=== PATIENT | male | born 1950 | race Caucasian/White ===

== ENCOUNTER 2021-11-07 14:23 | Inpatient (IN) ==
[2021-11-07 14:54] LABS: POC Blood Urea Nitrogen 14 mg/dL (6-20); POC CO2 27 mmol/L (22-30); POC Calcium, Ionized 1.21 mmEq/L (1.16-1.32); POC Chloride 102 mEq/L (96-108); POC Creatinine 0.6 mg/dL (0.6-1.2); POC Glucose, Random 117 mg/dL (70-105); POC Hematocrit 38 % (41-55); POC Potassium 2.7 mEql/L (3.3-5.1); POC Sodium 141 mEq/L (133-145)
[2021-11-07] MEDS ORDERED: oxyCODONE/APAP 5/325MG TABLET PO ONE (15:04)
[2021-11-07 15:20] LABS: Basophils # (Auto) 0.05 K/mcL (0.00-0.30); Basophils % (Auto) 0.5 % (0.0-2.0); Eosinophils # (Auto) 0.01 K/mcL (0.00-0.70); Eosinophils % (Auto) 0.1 % (0.0-7.0); Hematocrit 37.2 % (40.1-51.0); Hemoglobin 12.9 g/dL (13.7-17.5); Lymphocytes % (Auto) 17.5 % (15.5-49.0); Mean Cell Volume 90.7 fL (80.0-100.0); Mean Corpuscular HGB Conc 34.7 g/dL (31.0-36.0); Mean Platelet Volume 8.7 fL (7.4-10.4); Monocytes % (Auto) 11.3 % (1.0-12.0); Neutrophils % (Auto) 70.6 % (38.0-78.0); Platelet Count 357 K/mcL (140-440); Red Cell Distribution Width 15.5 % (11.5-14.5); WBC 9.7 K/mcL (4.5-11.0)
[2021-11-07] MEDS ORDERED: POTASSIUM CHLORIDE 20 MEQ TABLET PO ONE (15:46)
[2021-11-07] MEDS ORDERED: MAGNESIUM SULFATE 8.12 MEQ in DEXTROSE 5% IN WATER 50 ML IV ONE (15:46)
[2021-11-07 15:47] LABS: ALT/SGPT 28 U/L (<40); AST/SGOT 41 U/L (<40); Albumin 3.9 gm/dL (3.2-5.2); Albumin/Globulin Ratio 1.4 (1.0-2.3); Alkaline Phosphatase 76 U/L (39-117); Bilirubin,Total 0.5 mg/dL (0.1-1.0); Blood Urea Nitrogen 14 mg/dL (8-23); Calcium 9.2 mg/dL (8.6-10.4); Carbon Dioxide 27 mmol/L (22-30); Chloride 101 mmol/L (96-108); Globulin 2.7 gm/dL (2.2-3.7); Glomerular Filtration Rate 99; Glucose 120 mg/dL (70-105)
--- NOTE | 2021-11-07 15:57 | Emergency Department Note ---
Weakness HPI General Chief complaint: Weakness Stated complaint: unable to care for himself Time Seen by Provider: 11/07/21 14:27 Source: patient Mode of arrival: ambulatory Limitations: no limitations History of Present Illness HPI Narrative: Narrative: 71-year-old male presents for evaluation of generalized weakness, inability to care for himself at home. He has had 2 ER visits over the past 2 days subacute head trauma on Eliquis, had head CT which was negative, no other acute findings found other than borderline hypokalemia which was repleted yesterday. He denies any headache or dizziness. He denies chest pain or shortness of breath. He denies any constipation diarrhea or issues with diet. He denies fever or chill. He denies dysuria. He currently feels well other than generally weak Related Data Home Medications Medication Instructions Recorded Confirmed albuterol sulfate 90 mcg/actuation 1 - 2 puff PO QID 11/07/21 11/07/21 aerosol inhaler (Ventolin HFA) apixaban 5 mg tablet (Eliquis) 1 tab PO BID 11/07/21 11/07/21 atorvastatin 10 mg tablet 2 tab PO HS 11/07/21 11/07/21 ferrous sulfate 325 mg (65 mg 1 tab PO QDAY 11/07/21 11/07/21 iron) tablet (FeroSul) fluoxetine 20 mg capsule 1 cap PO QAM 11/07/21 11/07/21 levothyroxine 88 mcg tablet 1 tab PO QDAY 11/07/21 11/07/21 nifedipine 60 mg tablet,extended 1 tab PO QDAY 11/07/21 11/07/21 release oxycodone-acetaminophen 10 mg-325 1 tab PO QIDP PRN 11/07/21 11/07/21 mg tablet potassium chloride 10 mEq 1 cap PO QDAY 11/07/21 11/07/21 capsule,extended release Allergies Allergy/AdvReac Type Severity Reaction Status Date / Time No Known Drug Allergies Allergy Unverified 11/07/21 14:28 Review of Systems ROS ROS Narrative: Narrative: All systems ED: reviewed and negative except as stated. [facility] Narrative Patient History Narrative: Narrative: Medical/Surgical/Family History All Active Problems (Updated 11/07/21 @ 17:02 by Grayson Quiles DO) Acute hypokalemia (Acute) Weakness (Acute) Social History Smoking Status: Never smoker Exam Narrative Narrative: Narrative: General Limitations: no limitations General appearance: Present alert and in no apparent distress Head Head: Present atraumatic and normocephalic Eye Eye: Present normal appearance and PERRL ENT ENT: Present normal exam and normal oropharynx Neck Neck: Present normal inspection and full ROM Chest Chest: Present normal inspection and symmetric chest wall rise Respiratory Respiratory: Absent respiratory distress Cardiovascular Cardiovascular: Present regular rate and normal rhythm Adbominal Abdominal: Present soft; Absent tenderness Extremities Extremities: Present normal inspection and full ROM Back Back: Present normal inspection and full ROM Neurological Neurological: Present alert, oriented X3 and CN II-XII intact Psychiatric Psychiatric: Present normal affect and normal mood Skin Skin: Present warm (WNL), dry and normal color Course Vital Signs Vital signs: Vital Signs Temperature 99 F 11/07/21 14:24 Pulse Rate 65 11/07/21 14:24 Respiratory Rate 16 11/07/21 14:24 Blood Pressure 143/92 11/07/21 14:24 Pulse Oximetry (%) 94 11/07/21 14:24 Temperature 99 F 11/07/21 14:24 Pulse Rate 61 11/07/21 15:01 Respiratory Rate 16 11/07/21 14:24 Blood Pressure 153/89 11/07/21 15:01 Pulse Oximetry (%) 93 11/07/21 15:01 MDM MDM Narrative Medical decision making narrative: Narrative: Patient with generalized weakness. He is found to have worsening hypokalemia. Initial replete meant started in the emergency department. Does have abnormal EKG with prolonged QTC with this, these more appear to be T U waves. He will need cardiac monitoring, further potassium repletion and admission. By patient report he is also having multiple falls and will need PT evaluation and placement Medical Records Medical records reviewed: Yes I reviewed the patient's medical records. Lab Data Lab results reviewed: Yes I reviewed the patient's lab results. Result diagrams: 11/07/21 14:39 11/07/21 14:39 Labs: Lab Results 11/07/21 11/07/21 Range/Units 14:39 14:39 WBC 9.7 (4.5-11.0) K/mcL RBC 4.10 L (4.63-6.08) M/mcL Hgb 12.9 L (13.7-17.5) g/dL Hct 37.2 L (40.1-51.0) % POC Hct 38 L (41-55) % MCV 90.7 (80.0-100.0) fL MCH 31.5 (26.0-34.0) pg MCHC 34.7 (31.0-36.0) g/dL RDW 15.5 H (11.5-14.5) % Plt Count 357 (140-440) K/mcL MPV 8.7 (7.4-10.4) fL Neut % (Auto) 70.6 (38.0-78.0) % Lymph % (Auto) 17.5 (15.5-49.0) % Falls % (Auto) 11.3 (1.0-12.0) % Eos % (Auto) 0.1 (0.0-7.0) % Baso % (Auto) 0.5 (0.0-2.0) % Lymph # (Auto) 1.70 (1.50-4.80) K/mcL Falls # (Auto) 1.10 H (0.10-0.90) K/mcL Eos # (Auto) 0.01 (0.00-0.70) K/mcL Baso # (Auto) 0.05 (0.00-0.30) K/mcL Absolute Neutrophils 6.84 (1.80-8.00) K/mcL POC Sodium 141 (133-145) mEq/L Sodium 140 (133-145) mmol/L POC Potassium 2.7 L* (3.3-5.1) mEql/L Potassium 2.8 L* (3.3-5.1) mmol/L POC Chloride 102 (96-108) mEq/L Chloride 101 (96-108) mmol/L Carbon Dioxide 27 (22-30) mmol/L POC Total CO2 27 (22-30) mmol/L Anion Gap 12.0 (8.0-16.0) POC BUN 14 (6-20) mg/dL BUN 14 (8-23) mg/dL Creatinine 0.6 L (0.7-1.2) mg/dL POC Creatinine 0.6 (0.6-1.2) mg/dL GFR Calculation 99 Glucose 120 H (70-105) mg/dL POC Glucose 117 H (70-105) mg/dL Calcium 9.2 (8.6-10.4) mg/dL POC WB Ioniz Calcium 1.21 (1.16-1.32) mmEq/L Total Bilirubin 0.5 (0.1-1.0) mg/dL AST 41 H (<40) U/L ALT 28 (<40) U/L Alkaline Phosphatase 76 (39-117) U/L Total Protein 6.6 (5.9-8.4) gm/dL Albumin 3.9 (3.2-5.2) gm/dL Globulin 2.7 (2.2-3.7) gm/dL Albumin/Globulin Ratio 1.4 (1.0-2.3) Radiology Data Radiology results reviewed: Yes I reviewed the patient's radiology results. EKG Data EKG #1: EKG attestation: Yes I reviewed and interpreted this EKG. EKG results narrative: Sinus rhythm at a rate of 62. 6. QTc 505. Suspect false value, appear to be TU waves. No acute ischemic change. Abnormal EKG consistent with hypokalemia CC TIME Critical Care Time Critical Care Time: Yes Attestation: Approximately [30] minutes of critical care time was used in order to assess and manage the high probability of imminent or life threatening deterioration to hypokalemia which required my highest level of preparedness and interventions with frequent patient assessments. This time is excluding time spent on separately billable procedures. Discharge Plan Patient/Caregiver Discharge Instructions Pt seen by [employer] INST[employer]ER/PA only: No Clinical Impression: Acute hypokalemia, Weakness Patient Disposition: Xfer As Inpt ([facility]) Follow up with: Samm Bhakta MD [Primary Care Provider] - Prescriptions: No Action potassium chloride 10 mEq capsule, extended release 1 cap PO QDAY 0RF atorvastatin 10 mg tablet 2 tab PO HS 0RF levothyroxine 88 mcg tablet 1 tab PO QDAY 0RF oxycodone-acetaminophen 10-325 mg tablet 1 tab PO QIDP PRN (Reason: Pain) 0RF ferrous sulfate [FeroSul] 325 mg (65 mg iron) tablet 1 tab PO QDAY 0RF albuterol sulfate [Ventolin HFA] 90 mcg/actuation HFA aerosol inhaler 1 - 2 puff PO QID 0RF nifedipine 60 mg tablet extended release 1 tab PO QDAY 0RF fluoxetine 20 mg capsule 1 cap PO QAM 0RF Eliquis 5 mg tablet 1 tab PO BID 0RF
--- NOTE | 2021-11-07 17:38 | Internal Med History&Physical ---
HPI History of Present Illness Patient information: Note initiated : 11/07/21 at 5:30 pm Service Date, if different from initiated Date: [] Patient: Laci Rojas a 71 y/o M admitted on for unable to care for himself. Chief Complaint: [] Chief complaint: Frequent falls and "I just cannot take care of myself anymore" History of present illness: Mr. 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 Unfortunately much of the history is not available in the system, since this is patient's first visit to our hospital. Due to his dementia he is not able to offer very much history. We will make efforts to obtain his medical records from his PCPs office. I asked him about the reason for visiting emergency room. He said he just cannot take care of himself. He has significant tremors, which was evident on my examination. He says he knocks things over and has difficulty taking care of himself at his apartment. He lives alone, with no family. He says he barely manages to cook and feed himself. He endorses some concerning behavior "I sometimes leave the stove on, because I forget to turn it off"" my mind does not work, I cannot remember things anymore" Constitutional Constitutional: Absent anorexia, chills, fatigue, fever(s), headache(s), lethargy, malaise or night sweats Cardiovascular Cardiovascular: Absent chest pain, chest pain at rest, diaphoresis, irregular heart rhythm or lightheadedness Respiratory Respiratory: Absent hemoptysis, wheezing or excessive phlegm production Gastrointestinal Gastrointestinal: Absent diarrhea, hematemesis, melena, nausea or vomiting Neurological Neurological: Present abnormal movements, confusion, memory loss and tremor(s); Absent abnormal hearing, convulsions, dizziness, focal weakness, headache(s) or sensory deficit Additional comments: Significant bilateral upper extremity tremors noted. Unable to tell me the month. PFSH PFSH All Active Problems Acute hypokalemia (Acute) Weakness (Acute) Social History (Updated 11/07/21 @ 17:34 by Matti Segovia MD) household members: alone and other housing: apartment lives independently: Yes marital status: single MEDS/ALLERGIES Home Medications and Allergies Home Medications Medication Instructions Recorded Confirmed Type albuterol sulfate 90 mcg/actuation 1 - 2 puff PO QID 11/07/21 11/07/21 History aerosol inhaler (Ventolin HFA) apixaban 5 mg tablet (Eliquis) 1 tab PO BID 11/07/21 11/07/21 History atorvastatin 10 mg tablet 2 tab PO HS 11/07/21 11/07/21 History ferrous sulfate 325 mg (65 mg 1 tab PO QDAY 11/07/21 11/07/21 History iron) tablet (FeroSul) fluoxetine 20 mg capsule 1 cap PO QAM 11/07/21 11/07/21 History levothyroxine 88 mcg tablet 1 tab PO QDAY 11/07/21 11/07/21 History nifedipine 60 mg tablet,extended 1 tab PO QDAY 11/07/21 11/07/21 History release oxycodone-acetaminophen 10 mg-325 1 tab PO QIDP PRN 11/07/21 11/07/21 History mg tablet potassium chloride 10 mEq 1 cap PO QDAY 11/07/21 11/07/21 History capsule,extended release Allergies Allergy/AdvReac Type Severity Reaction Status Date / Time No Known Drug Allergies Allergy Unverified 11/07/21 14:28 EXAM Constitutional Vitals: Temp Pulse Resp BP Pulse Ox 99 F 54 L 18 155/85 96 11/07/21 14:24 11/07/21 17:17 11/07/21 17:17 11/07/21 17:17 11/07/21 17:17 General appearance: cooperative Exam: Underweight. Head Head exam: Present atraumatic and normocephalic Eye Eye exam: Present EOMI ENT ENT exam: Present mucous membranes moist Respiratory Respiratory exam: Present normal respiratory exam and CTAB; Absent accessory muscle use, chest wall tenderness, respiratory distress or wheezes Cardiovascular Cardiovascular exam: Present irregular rhythm; Absent rubs GI/Abdominal GI/Abdominal exam: Present normal bowel sounds and soft; Absent distended or mass Expanded Neurological Exam Neurological exam: Present memory loss-recent event and tremor Patient oriented to: Present person and place; Absent time DATA Data Completed and Pending Labs: Labs from last 24 hours 03/25/22 03/25/22 14:39 14:39 WBC 9.7 RBC 4.10 L Hgb 12.9 L Hct 37.2 L POC Hct 38 L MCV 90.7 MCH 31.5 MCHC 34.7 RDW 15.5 H Plt Count 357 MPV 8.7 Neut % (Auto) 70.6 Lymph % (Auto) 17.5 Crisp % (Auto) 11.3 Eos % (Auto) 0.1 Baso % (Auto) 0.5 Lymph # (Auto) 1.70 Crisp # (Auto) 1.10 H Eos # (Auto) 0.01 Baso # (Auto) 0.05 Absolute Neutrophils 6.84 POC Sodium 141 Sodium 140 POC Potassium 2.7 L* Potassium 2.8 L* POC Chloride 102 Chloride 101 Carbon Dioxide 27 POC Total CO2 27 Anion Gap 12.0 POC BUN 14 BUN 14 Creatinine 0.6 L POC Creatinine 0.6 GFR Calculation 99 Glucose 120 H POC Glucose 117 H Calcium 9.2 POC WB Ioniz Calcium 1.21 Total Bilirubin 0.5 AST 41 H ALT 28 Alkaline Phosphatase 76 Total Protein 6.6 Albumin 3.9 Globulin 2.7 Albumin/Globulin Ratio 1.4 A/P Narrative A/P Narrative: Mr. Bolivar is a 71-year-old male with history of hypothyroidism, depression, dementia, chronic Eliquis therapy who presents to hospital as directed by his primary care physician for failure to thrive 1. Frequent falls and failure to thrive Suspect this is a combination of his dementia, which could be worsening, as evident by his tremors. He is almost cachectic and physically weak. Demonstrates risky behaviors such as forgetting to turn off the stove. Should not be discharged back to be alone by himself. We will attempt to obtain shelter placement. Ordered CT of the head without contrast. Ordered urinalysis with urine cultures. Ordered TSH and vitamin B12 level. Physical therapy evaluation ordered. Ultimately will need shelter placement. 2.Hypokalemia, most likely from poor oral intake at home . repletion as ordered. 3. Hypothyroidism, TSH ordered. Resume levothyroxine 4. Hypertension-resume nifedipine At this time much of the history is not available since it is his first visit to our hospital. We will attempt to secure records from his PCP after this weekend. Meanwhile continue his home medications of Eliquis 1 tablets twice daily, atorvastatin, fluoxetine, levothyroxine DVT prophylaxis on Eliquis which is resumed. I had a goals of care discussion with patient. He appears competent and has insight into his medical history. He knows enough to understand that he is at risk to himself and should not live alone. He is alert and oriented to himself and place. Explained about chest compressions, shock and ventilator. Patient reports if his heart were to stop or if he has significant shortness of breath, he should be allowed to pass away peacefully. He declines CPR, shocks and ventilator. CODE STATUS- DO NOT RESUSCITATE. Time Spent With Patient Time: Total time spent is greater than 50% in coordination of care (as documented) at patient's floor/unit and/or counseling patient: Total time spent with greater than 50% in coordination of care (as documented) at patient's floor/unit and/or counseling patient:: 50 - 70 minutes
[2021-11-07] MEDS ORDERED: ONDANSETRON 4 MG/2 ML VIAL IV PRN (18:57)
[2021-11-07 18:58] LABS: Thyroid Stimulating Hormone 5.52 uIU/mL (0.27-5.01)
[2021-11-07] MEDS ORDERED: ALBUTEROL SULFATE 200 PUFF INHALER INH PRN (21:00)
[2021-11-07] MEDS: POTASSIUM CHLORIDE 20 MEQ TABLET PO SCH (22:10)
[2021-11-07] MEDS: ACETAMINOPHEN 325 MG TABLET PO PRN (22:10)
[2021-11-07] MEDS: 0.9 % SODIUM CHLORIDE 10 ML SYRINGE IV SCH (22:11)
[2021-11-07] MEDS: ATORVASTATIN 10 MG TABLET PO SCH (22:11)
[2021-11-07] MEDS: DOCUSATE SODIUM 100 MG CAPSULE PO SCH (22:11)
[2021-11-07] MEDS: APIXABAN 5 MG TABLET PO SCH (22:11)
[2021-11-07] MEDS: SENNOSIDES 1 TABLET PO SCH (22:11)
[2021-11-08] MEDS: 0.9 % SODIUM CHLORIDE 10 ML SYRINGE IV SCH ×3 (05:28→21:24)
[2021-11-08 06:20] LABS: Basophils # (Auto) 0.04 K/mcL (0.00-0.30); Basophils % (Auto) 0.5 % (0.0-2.0); Eosinophils % (Auto) 1.2 % (0.0-7.0); Hematocrit 37.2 % (40.1-51.0); Hemoglobin 12.6 g/dL (13.7-17.5); Lymphocytes # (Auto) 1.97 K/mcL (1.50-4.80); Lymphocytes % (Auto) 23.4 % (15.5-49.0); Mean Cell Volume 91.6 fL (80.0-100.0); Mean Corpuscular HGB Conc 33.9 g/dL (31.0-36.0); Mean Platelet Volume 8.6 fL (7.4-10.4); Monocytes # (Auto) 0.95 K/mcL (0.10-0.90); Monocytes % (Auto) 11.3 % (1.0-12.0); Neutrophils % (Auto) 63.6 % (38.0-78.0); Platelet Count 383 K/mcL (140-440); RBC 4.06 M/mcL (4.63-6.08); Red Cell Distribution Width 15.7 % (11.5-14.5); WBC 8.4 K/mcL (4.5-11.0)
[2021-11-08 06:24] LABS: Appearance,Urine HAZY (Clear); Bilirubin,Urine NEG (Negative); Color,Urine AMBER; Culture Indicated,Urine No; Glucose,Urine (UA) NEG (Negative); Ketones,Urine 5 mg/dL (Negative); Leukocyte Esterase,Urine NEG /uL (Negative); Nitrate,Urine NEG (Negative); Protein,Urine NEG (Negative); Specific Gravity,Urine 1.026 (1.000-1.035); Urine Blood NEG (Negative); Urobilinogen,Urine NEG
[2021-11-08 06:43] LABS: Blood Urea Nitrogen 14 mg/dL (8-23); Calcium 8.8 mg/dL (8.6-10.4); Carbon Dioxide 25 mmol/L (22-30); Chloride 102 mmol/L (96-108); Glomerular Filtration Rate 107; Glucose 102 mg/dL (70-105)
[2021-11-08] MEDS: LEVOTHYROXINE 88 MCG TABLET PO SCH (07:48)
[2021-11-08] MEDS: POTASSIUM CHLORIDE 20 MEQ TABLET PO SCH (07:48)
[2021-11-08] MEDS: FLUoxetine HCL 20 MG CAPSULE PO SCH (08:09)
[2021-11-08] MEDS: DOCUSATE SODIUM 100 MG CAPSULE PO SCH ×2 (08:09→21:20)
[2021-11-08] MEDS: APIXABAN 5 MG TABLET PO SCH ×2 (08:09→21:20)
[2021-11-08] MEDS: FERROUS SULFATE 325 MG TABLET PO SCH (08:09)
[2021-11-08] MEDS ORDERED: POTASSIUM CHLORIDE 20 MEQ TABLET PO PRN (08:40)
[2021-11-08] MEDS ORDERED: NIFEdipine 30 MG TAB.XL.24H PO SCH (09:00)
--- NOTE | 2021-11-08 10:40 | Cat Scan Report ---
History: Dementia, frequent falls, anticoagulated TECHNIQUE: The brain was imaged without contrast in axial plane at 2.5 mm intervals. The radiation exposure was limited using dose reduction technology. FINDINGS: There is a 4 x 7 mm old subcortical white matter infarct high and posteriorly in the left frontal lobe which measures 5 x 7 mm in size. On axial image #43 there is a 6 mm old cortical infarct posteriorly and superiorly in the right frontal lobe. No acute infarct is detected. There is no hemorrhage or cerebral edema. No mass effect is present. There are age-related degenerative changes with mild atrophy, most apparent in the temporal and frontal lobes. There is also mild dilatation of the lateral ventricles. Third and fourth ventricles are normal in size. There is no abnormal extra-axial fluid collection. Bone windows show no skull fracture. There is an old blowout fracture of the medial wall of the left orbit. There is no entrapment of the medial rectus muscle. No prior study is available for comparison. 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
--- NOTE | 2021-11-08 10:57 | Internal Med Progress Note ---
SUBJECTIVE Subjective Patient information: Note initiated : 11/08/21 at 10:50 am Service Date, if different from initiated Date: [] Patient: Laci Rojas 71 y/o M admitted on 11/07/21 for unable to care for himself. Chief Complaint: [] Principal diagnosis: Failure to thrive. Frequent falls Interval history: Mr. 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 Unfortunately much of the history is not available in the system, since this is patient's first visit to our hospital. Due to his dementia he is not able to offer very much history. We will make efforts to obtain his medical records from his PCPs office. I asked him about the reason for visiting emergency room. He said he just cannot take care of himself. He has significant tremors, which was evident on my examination. He says he knocks things over and has difficulty taking care of himself at his apartment. He lives alone, with no family. He says he barely manages to cook and feed himself. He endorses some concerning behavior "I sometimes leave the stove on, because I forget to turn it off"" my mind does not work, I cannot remember things anymore" 11/08-potassium has been repleted. His [id number] who is the medical power of civil litigation attorney is at bedside. We discussed overall goals of care for him. She agrees that he needs mcc placement. She confirmed that he has advanced directive-DO NOT RESUSCITATE. His blood pressure has been soft this morning after he received nifedipine. Around 7 in the morning it was 180 systolic, now it is 70 systolic. Denies any dizziness or lightheadedness. Ordered 1 L normal saline bolus. Canceled nifedipine. Would like to monitor his blood pressure off of medication for a few days. Constitutional Vitals: Vital Signs Temp Pulse Resp BP Pulse Ox 98.4 F 59 L 20 72/36 96 11/08/21 07:36 11/08/21 07:36 11/08/21 07:36 11/08/21 09:35 11/08/21 07:36 Period Temp Pulse Resp BP Sys/Harper Pulse Ox Last 24 Hr 97.2 F-99 F 41-65 14-24 72-188/36-100 90-99 Intake and Output 11/07/21 11/08/21 11/08/21 21:59 05:59 13:59 Intake Total 31 480 Output Total 301 Balance 31 179 Weight 46.947 kg Intake & Output: Intake & Output 11/07/21 11/08/21 11/08/21 21:59 05:59 13:59 Intake Total 31 480 Output Total 301 Balance 31 179 Weight 46.947 kg Intake: IV 31 Magnesium Sulfate 8.12 Meq In 31 Dextrose 5% in Water 50 ml @ 52 mls/hr IV ONCE ONE Rx#: [id number] Oral 480 Output: Void Amount 300 # of times incontinent of urine 1 Other: Meal Breakfast Percent of Meal Consumed 100% Feeding Ability Independent Urine Appearance Clear Urine Color Dark Yellow General appearance: average body habitus, cooperative and no acute distress Exam: Underweight, almost cachectic Head Head exam: Present atraumatic and normocephalic Eye Eye exam: Present normal appearance Respiratory Respiratory exam: Present normal respiratory exam and CTAB; Absent accessory muscle use, decreased breath sounds or respiratory distress Cardiovascular Cardiovascular exam: Present normal rate and rhythm and RRR; Absent bradycardia, gallop, systolic murmur or tachycardia GI/Abdominal GI/Abdominal exam: Present soft Neurological Exam Neurological exam: Present alert and oriented X3; Absent altered or motor sensory deficit OBJ DATA Labs CBC & Chem 7: 11/08/21 05:11 11/08/21 05:11 Labs: Abnormal Lab Results 11/08/21 11/08/21 11/08/21 05:38 05:11 05:11 RBC 4.06 L Hgb 12.6 L Hct 37.2 L POC Hct RDW 15.7 H Gilliam # (Auto) 0.95 H POC Potassium Potassium Creatinine 0.5 L Glucose POC Glucose AST TSH Urine Appearance Hazy A Urine Ketones 5 A 11/07/21 11/07/21 11/07/21 14:39 14:39 14:39 RBC 4.10 L Hgb 12.9 L Hct 37.2 L POC Hct 38 L RDW 15.5 H Gilliam # (Auto) 1.10 H POC Potassium 2.7 L* Potassium 2.8 L* Creatinine 0.6 L Glucose 120 H POC Glucose 117 H AST 41 H TSH 5.52 H Urine Appearance Urine Ketones Meds: Medications Acetaminophen (Acetaminophen 325 Mg Tablet) 650 mg PO Q6HP PRN; Protocol PRN Reason: Per Pain Protocol/Fever > 101 Last Admin: 11/07/21 22:10 Dose: 650 mg Documented by: Albuterol Sulfate (Albuterol Sulfate 200 Puff Inhaler) 1 - 2 puff INH QIDP PRN PRN Reason: Shortness Of Breath Apixaban (Apixaban 5 Mg Tablet) 5 mg PO BID [facility] Last Admin: 11/08/21 08:09 Dose: 5 mg Documented by: Atorvastatin Calcium (Atorvastatin 10 Mg Tablet) 20 mg PO HS [facility] Last Admin: 11/07/21 22:11 Dose: 20 mg Documented by: Docusate Sodium (Docusate Sodium 100 Mg Capsule) 100 mg PO BID [facility] Last Admin: 11/08/21 08:09 Dose: Not Given Documented by: Ferrous Sulfate (Ferrous Sulfate 325 Mg Tablet) 325 mg PO QDAY [facility] Last Admin: 11/08/21 08:09 Dose: 325 mg Documented by: Fluoxetine HCl (Fluoxetine Hcl 20 Mg Capsule) 20 mg PO QAM [facility] Last Admin: 11/08/21 08:09 Dose: 20 mg Documented by: Sodium Chloride (Cold Sodium Chloride 0.9%) 1,000 mls @ 0 mls/hr IV ONCE [facility] Levothyroxine Sodium (Levothyroxine 88 Mcg Tablet) 88 mcg PO QAMAC [facility] Last Admin: 11/08/21 07:48 Dose: 88 mcg Documented by: Ondansetron HCl (Ondansetron 4 Mg/2 Ml Vial) 4 mg IV Q6HP PRN PRN Reason: Nausea And Vomiting Potassium Chloride (Potassium Chloride 20 Meq Tablet) 20 meq PO PRN PRN PRN Reason: Potassium between 3.2-3.5 Senna (Sennosides 1 Tablet) 2 tab PO [facility] Last Admin: 11/07/21 22:11 Dose: 2 tab Documented by: Sodium Chloride (0.9 % Sodium Chloride 10 Ml Syringe) 10 ml IV Q8 [facility] Last Admin: 11/08/21 05:28 Dose: 10 ml Documented by: Trazodone HCl (Trazodone Hcl 50 Mg Tablet) 25 mg PO HSP PRN PRN Reason: Insomnia A/P Narrative Plan of Treatment: Mr. Bolivar is a 71-year-old male with history of hypothyroidism, depression, dementia, chronic Eliquis therapy who presents to hospital as directed by his primary care physician for failure to thrive 1. Frequent falls and failure to thrive Suspect this is a combination of his dementia, which could be worsening, as e vident by his tremors. He is almost cachectic and physically weak. Demonstrates risky behaviors such as forgetting to turn off the stove. Should not be discharged back to be alone by himself. We will attempt to obtain mcc placement. Ordered CT of the head without contrast-ruled out acute infarct or bleed. Shows mild hydrocephalus. Clinically he does not have wet, wobbly or WACKY symptoms. Normal urinalysis. TSH normal. Normal vitamin B12 level. Physical therapy evaluation ordered. Ultimately will need mcc placement. 2.Hypokalemia, most likely from poor oral intake at home . Repleted. 3. Hypothyroidism, TSH within normal limits. Resume levothyroxine 4. Hypertension-his blood pressure dropped significantly after his home nifedipine 30 mg was given this morning. Stopped nifedipine. 1 L normal saline bolus. Ordered lactate. Will monitor his blood pressure for a few days with no medications. 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 He has been started on Eliquis in the past for this. Resumed. Meanwhile continue his home medications atorvastatin, fluoxetine, DVT prophylaxis on Eliquis which is resumed. CODE STATUS- DO NOT RESUSCITATE. Time Spent With Patient Time: Total time spent is greater than 50% in coordination of care (as documented) at patient's floor/unit and/or counseling patient: Total time spent with greater than 50% in coordination of care (as documented) at patient's floor/unit and/or counseling patient:: 35 - 50 minutes QUALITY VTE Deep Vein Thrombosis/Pulmonary Embolism Present on Admission: No
[2021-11-08] MEDS: COLD 0.9 % SODIUM CHLORIDE 1,000 ML IV SCH (11:54)
[2021-11-08] MEDS: ACETAMINOPHEN 325 MG TABLET PO PRN (12:54)
[2021-11-08] MEDS ORDERED: oxyCODONE/APAP 10/325MG TABLET PO PRN (17:08)
[2021-11-08] MEDS: ATORVASTATIN 10 MG TABLET PO SCH (21:16)
[2021-11-08] MEDS: SENNOSIDES 1 TABLET PO SCH (21:20)
[2021-11-08] MEDS: traZODone HCL 50 MG TABLET PO PRN (21:23)
[2021-11-08] MEDS ORDERED: ATORVASTATIN 10 MG TABLET ONE (21:26)
[2021-11-09] MEDS: 0.9 % SODIUM CHLORIDE 10 ML SYRINGE IV SCH ×3 (04:28→22:15)
[2021-11-09 06:10] LABS: Basophils # (Auto) 0.04 K/mcL (0.00-0.30); Basophils % (Auto) 0.4 % (0.0-2.0); Eosinophils # (Auto) 0.12 K/mcL (0.00-0.70); Eosinophils % (Auto) 1.1 % (0.0-7.0); Hematocrit 36.9 % (40.1-51.0); Hemoglobin 12.4 g/dL (13.7-17.5); Lymphocytes # (Auto) 2.01 K/mcL (1.50-4.80); Lymphocytes % (Auto) 19.1 % (15.5-49.0); Mean Cell Volume 91.8 fL (80.0-100.0); Mean Corpuscular HGB Conc 33.6 g/dL (31.0-36.0); Mean Platelet Volume 9.1 fL (7.4-10.4); Monocytes # (Auto) 0.94 K/mcL (0.10-0.90); Monocytes % (Auto) 8.9 % (1.0-12.0); Neutrophils % (Auto) 70.5 % (38.0-78.0); Platelet Count 388 K/mcL (140-440); RBC 4.02 M/mcL (4.63-6.08); Red Cell Distribution Width 15.5 % (11.5-14.5); WBC 10.5 K/mcL (4.5-11.0)
[2021-11-09 06:26] LABS: Blood Urea Nitrogen 16 mg/dL (8-23); Calcium 8.9 mg/dL (8.6-10.4); Carbon Dioxide 27 mmol/L (22-30); Chloride 100 mmol/L (96-108); Glomerular Filtration Rate 118; Glucose 98 mg/dL (70-105)
[2021-11-09] MEDS: LEVOTHYROXINE 88 MCG TABLET PO SCH (07:33)
[2021-11-09] MEDS: FLUoxetine HCL 20 MG CAPSULE PO SCH (08:10)
[2021-11-09] MEDS: ACETAMINOPHEN 325 MG TABLET PO PRN ×2 (08:10→15:27)
[2021-11-09] MEDS: APIXABAN 5 MG TABLET PO SCH ×2 (08:10→22:16)
[2021-11-09] MEDS: DOCUSATE SODIUM 100 MG CAPSULE PO SCH ×2 (08:10→22:16)
[2021-11-09] MEDS: FERROUS SULFATE 325 MG TABLET PO SCH (08:10)
--- NOTE | 2021-11-09 09:35 | Internal Med Progress Note ---
SUBJECTIVE Subjective Patient information: Note initiated : 11/09/21 at 9:33 am Service Date, if different from initiated Date: [] Patient: Laci Rojas 71 y/o M admitted on 11/07/21 for unable to care for himself. Chief Complaint: [] Principal diagnosis: Failure to thrive. Frequent falls Interval history: Mr. 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 Unfortunately much of the history is not available in the system, since this is patient's first visit to our hospital. Due to his dementia he is not able to offer very much history. We will make efforts to obtain his medical records from his PCPs office. I asked him about the reason for visiting emergency room. He said he just cannot take care of himself. He has significant tremors, which was evident on my examination. He says he knocks things over and has difficulty taking care of himself at his apartment. He lives alone, with no family. He says he barely manages to cook and feed himself. He endorses some concerning behavior "I sometimes leave the stove on, because I forget to turn it off"" my mind does not work, I cannot remember things anymore" 11/08-potassium has been repleted. His eyluie-kw-fjw who is the medical power of research attorney is at bedside. We discussed overall goals of care for him. She agrees that he needs senior living placement. She confirmed that he has advanced directive-DO NOT RESUSCITATE. His blood pressure has been soft this morning after he received nifedipine. Around 7 in the morning it was 180 systolic, now it is 70 systolic. Denies any dizziness or lightheadedness. Ordered 1 L normal saline bolus. Canceled nifedipine. Would like to monitor his blood pressure off of medication for a few days. 11/09- CT of the head is fairly unremarkable. Blood pressure is better. Continue to hold off blood pressure medications.He is sleeping and prefers to remain asleep Constitutional Vitals: Vital Signs Temp Pulse Resp BP Pulse Ox 98 F 63 20 135/81 93 11/09/21 06:55 11/09/21 04:00 11/09/21 06:55 11/09/21 06:55 11/09/21 06:55 Period Temp Pulse Resp BP Sys/Harper Pulse Ox Last 24 Hr 97.8 F-98.2 F 56-66 14-24 72-151/36-83 93-97 Intake and Output 11/08/21 11/09/21 11/09/21 21:59 05:59 13:59 Intake Total 2100 500 Output Total 550 800 Balance 1550 -300 Weight 46.266 kg Intake & Output: Intake & Output 11/08/21 11/09/21 11/09/21 21:59 05:59 13:59 Intake Total 2100 500 Output Total 550 800 Balance 1550 -300 Weight 46.266 kg Intake: IV 1000 Cold Sodium Chloride 0.9% 1,000 1000 ml @ Wide Open IV ONCE PABLO Rx# :[id number] Oral 1100 500 Output: Void Amount 550 800 Other: Meal Dinner Percent of Meal Consumed 100% Feeding Ability Independent Urine Appearance Clear Urine Color Dark Yellow Urine Odor Normal General appearance: average body habitus, cooperative and no acute distress Head Head exam: Present atraumatic and normocephalic Eye Eye exam: Present normal appearance Respiratory Respiratory exam: Present normal respiratory exam and CTAB; Absent accessory muscle use, decreased breath sounds or respiratory distress Cardiovascular Cardiovascular exam: Present normal rate and rhythm and RRR; Absent bradycardia, gallop, systolic murmur or tachycardia GI/Abdominal GI/Abdominal exam: Present soft Neurological Exam Neurological exam: Present alert and oriented X3; Absent altered or motor sensory deficit OBJ DATA Labs CBC & Chem 7: 11/09/21 05:15 11/09/21 05:15 Labs: Abnormal Lab Results 11/09/21 11/09/21 11/08/21 05:15 05:15 05:38 RBC 4.02 L Hgb 12.4 L Hct 36.9 L POC Hct RDW 15.5 H [place] # (Auto) 0.94 H POC Potassium Potassium Creatinine 0.4 L Glucose POC Glucose AST TSH Urine Appearance Hazy A Urine Ketones 5 A 11/08/21 11/08/21 11/07/21 05:11 05:11 14:39 RBC 4.06 L Hgb 12.6 L Hct 37.2 L POC Hct RDW 15.7 H [place] # (Auto) 0.95 H POC Potassium Potassium Creatinine 0.5 L Glucose POC Glucose AST TSH 5.52 H Urine Appearance Urine Ketones 11/07/21 11/07/21 14:39 14:39 RBC 4.10 L Hgb 12.9 L Hct 37.2 L POC Hct 38 L RDW 15.5 H [place] # (Auto) 1.10 H POC Potassium 2.7 L* Potassium 2.8 L* Creatinine 0.6 L Glucose 120 H POC Glucose 117 H AST 41 H TSH Urine Appearance Urine Ketones Meds: Medications Acetaminophen (Acetaminophen 325 Mg Tablet) 650 mg PO Q6HP PRN; Protocol PRN Reason: Per Pain Protocol/Fever > 101 Last Admin: 11/09/21 08:10 Dose: 650 mg Documented by: Albuterol Sulfate (Albuterol Sulfate 200 Puff Inhaler) 1 - 2 puff INH QIDP PRN PRN Reason: Shortness Of Breath Apixaban (Apixaban 5 Mg Tablet) 5 mg PO BID [facility] Last Admin: 11/09/21 08:10 Dose: 5 mg Documented by: Atorvastatin Calcium (Atorvastatin 10 Mg Tablet) 20 mg PO [facility] Last Admin: 11/08/21 21:16 Dose: 20 mg Documented by: Docusate Sodium (Docusate Sodium 100 Mg Capsule) 100 mg PO BID [facility] Last Admin: 11/09/21 08:10 Dose: 100 mg Documented by: Ferrous Sulfate (Ferrous Sulfate 325 Mg Tablet) 325 mg PO QDAY [facility] Last Admin: 11/09/21 08:10 Dose: 325 mg Documented by: Fluoxetine HCl (Fluoxetine Hcl 20 Mg Capsule) 20 mg PO QAM [facility] Last Admin: 11/09/21 08:10 Dose: 20 mg Documented by: Sodium Chloride (Cold Sodium Chloride 0.9%) 1,000 mls @ 0 mls/hr IV ONCE [facility] Last Infusion: 11/08/21 14:20 Dose: Infused Documented by: Levothyroxine Sodium (Levothyroxine 88 Mcg Tablet) 88 mcg PO QAMAC [facility] Last Admin: 11/09/21 07:33 Dose: 88 mcg Documented by: Ondansetron HCl (Ondansetron 4 Mg/2 Ml Vial) 4 mg IV Q6HP PRN PRN Reason: Nausea And Vomiting Oxycodone/Acetaminophen (Oxycodone/Apap 10/325mg Tablet) 1 tab PO QIDP PRN; Protocol PRN Reason: Pain Last Admin: 11/08/21 19:23 Dose: 1 tab Documented by: Potassium Chloride (Potassium Chloride 20 Meq Tablet) 20 meq PO PRN PRN PRN Reason: Potassium between 3.2-3.5 Senna (Sennosides 1 Tablet) 2 tab PO HS [facility] Last Admin: 11/08/21 21:20 Dose: Not Given Documented by: Sodium Chloride (0.9 % Sodium Chloride 10 Ml Syringe) 10 ml IV Q8 [facility] Last Admin: 11/09/21 04:28 Dose: 10 ml Documented by: Trazodone HCl (Trazodone Hcl 50 Mg Tablet) 25 mg PO HSP PRN PRN Reason: Insomnia Last Admin: 11/08/21 21:23 Dose: 25 mg Documented by: A/P Narrative Plan of Treatment: Mr. Bolivar is a 71-year-old male with history of hypothyroidism, depression, dementia, chronic Eliquis therapy who presents to hospital as directed by his primary care physician for failure to thrive 1. Frequent falls and failure to thrive Suspect this is a combination of his dementia, which could be worsening, as evident by his tremors. He is almost cachectic and physically weak. Demonstrates risky behaviors such as forgetting to turn off the stove. Should not be discharged back to be alone by himself. We will attempt to obtain senior living placement. Ordered CT of the head without contrast-ruled out acute infarct or bleed. Shows mild hydrocephalus. Clinically he does not have wet, wobbly or WACKY symptoms. Normal urinalysis. TSH normal. Normal vitamin B12 level. Physical therapy evaluation ordered. Ultimately will need senior living placement. 2.Hypokalemia, most likely from poor oral intake at home . Repleted. 3. Hypothyroidism, TSH within normal limits. Resume levothyroxine 4. Hypertension-his blood pressure dropped significantly after his home nifedipine 30 mg was given this morning. Stopped nifedipine. 1 L normal saline bolus. Ordered lactate. Will monitor his blood pressure for a few days with no medications. 5. " Stenotic cerebral artery"-[id number] who is MPOA also confirms this. He has been started on Eliquis in the past for this. Resumed. Meanwhile continue his home medications atorvastatin, fluoxetine, DVT prophylaxis on Eliquis which is resumed. CODE STATUS- DO NOT RESUSCITATE. Time Spent With Patient Time: Total time spent is greater than 50% in coordination of care (as documented) at patient's floor/unit and/or counseling patient: Total time spent with greater than 50% in coordination of care (as documented) at patient's floor/unit and/or counseling patient:: 15 - 24 minutes Critical Care Time: No QUALITY VTE Deep Vein Thrombosis/Pulmonary Embolism Present on Admission: No
--- NOTE | 2021-11-09 10:36 | EKG ---
[facility] Test Date: 2021-11-07 Pat Name: Laci Rojas Department: ED Room: Gender: Male Media Services Specialist: LR : [id number] Requested By: Grayson Quiles Order Number: [id number] Reading MD: Toney Arroyo Measurements Intervals [place] Rate: 62 P: 79 DC: 137 QRS: 211 QRSD: 147 T: 43 QT: 497 QTc: 505 Interpretive Statements Sinus rhythm Nonspecific intraventricular conduction delay Electronically Signed On 11-09-2021 10:35:43 PDT by Toney Arroyo /store/M0/[id number].pdf
--- NOTE | 2021-11-09 10:45 | XRay Report ---
HISTORY: Hypoxia, smoker FINDINGS: Lungs are severely hyperinflated due to emphysema. This has become worse since 07/05/15. There is no evidence of pneumonia or pulmonary mass. No congestive heart failure or pleural effusion are present. The heart size is normal. The aorta is moderately tortuous. There are postsurgical changes following prior fusion in the lower neck. There are multiple small flecks of metallic foreign bodies around the right shoulder. This is a chronic finding and may be from an old injury. IMPRESSION: Worsening emphysema Interpreted and Authenticated by: Kermit Murphy 11/09/21
[2021-11-09] MEDS: COLD 0.9 % SODIUM CHLORIDE 1,000 ML IV SCH (10:48)
[2021-11-09] MEDS: traZODone HCL 50 MG TABLET PO PRN (22:15)
[2021-11-09] MEDS: ATORVASTATIN 10 MG TABLET PO SCH (22:15)
[2021-11-09] MEDS: SENNOSIDES 1 TABLET PO SCH (22:16)
[2021-11-10] MEDS: 0.9 % SODIUM CHLORIDE 10 ML SYRINGE IV SCH ×3 (04:40→20:56)
[2021-11-10] MEDS: ACETAMINOPHEN 325 MG TABLET PO PRN (07:33)
[2021-11-10] MEDS: LEVOTHYROXINE 88 MCG TABLET PO SCH (07:33)
[2021-11-10] MEDS: FLUoxetine HCL 20 MG CAPSULE PO SCH (08:08)
[2021-11-10] MEDS: FERROUS SULFATE 325 MG TABLET PO SCH (08:08)
[2021-11-10] MEDS: APIXABAN 5 MG TABLET PO SCH ×2 (08:08→20:56)
[2021-11-10] MEDS: DOCUSATE SODIUM 100 MG CAPSULE PO SCH ×2 (08:08→20:55)
--- NOTE | 2021-11-10 15:16 | Internal Med Progress Note ---
SUBJECTIVE Subjective Patient information: Note initiated : 11/10/21 at 3:15 pm Service Date, if different from initiated Date: [] Patient: Laci Rojas 71 y/o M admitted on 11/07/21 for unable to care for himself. Chief Complaint: [] Principal diagnosis: Failure to thrive. Frequent falls Interval history: Mr. 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 Unfortunately much of the history is not available in the system, since this is patient's first visit to our hospital. Due to his dementia he is not able to offer very much history. We will make efforts to obtain his medical records from his PCPs office. I asked him about the reason for visiting emergency room. He said he just cannot take care of himself. He has significant tremors, which was evident on my examination. He says he knocks things over and has difficulty taking care of himself at his apartment. He lives alone, with no family. He says he barely manages to cook and feed himself. He endorses some concerning behavior "I sometimes leave the stove on, because I forget to turn it off"" my mind does not work, I cannot remember things anymore" 11/08-potassium has been repleted. His eglvky-tt-mpu who is the medical power of divorce attorney is at bedside. We discussed overall goals of care for him. She agrees that he needs senior living placement. She confirmed that he has advanced directive-DO NOT RESUSCITATE. His blood pressure has been soft this morning after he received nifedipine. Around 7 in the morning it was 180 systolic, now it is 70 systolic. Denies any dizziness or lightheadedness. Ordered 1 L normal saline bolus. Canceled nifedipine. Would like to monitor his blood pressure off of medication for a few days. 11/09- CT of the head is fairly unremarkable. Blood pressure is better. Continue to hold off blood pressure medications.He is sleeping and prefers to remain asleep 11/10- Met with his sister in law who is his MPA yesterday. No new sx today. Comfortable Constitutional Vitals: Vital Signs Temp Pulse Resp BP Pulse Ox 98.6 F 67 18 99/64 97 11/10/21 12:00 11/10/21 12:00 11/10/21 12:00 11/10/21 12:00 11/10/21 12:00 Period Temp Pulse Resp BP Sys/Harper Pulse Ox Last 24 Hr 97.7 F-98.8 F 51-74 16-20 99-159/64-86 93-97 Intake and Output 11/10/21 11/10/21 11/10/21 05:59 13:59 21:59 Intake Total 400 Output Total 650 Balance -650 400 Intake & Output: Intake & Output 11/10/21 11/10/21 11/10/21 05:59 13:59 21:59 Intake Total 400 Output Total 650 Balance -650 400 Intake: Oral 400 Output: Void Amount 650 Other: Meal Breakfast Percent of Meal Consumed 100% Feeding Ability Independent General appearance: average body habitus, cooperative and no acute distress Exam: Underweight, almost cachectic Head Head exam: Present atraumatic and normocephalic Eye Eye exam: Present normal appearance Respiratory Respiratory exam: Present normal respiratory exam and CTAB; Absent accessory muscle use, decreased breath sounds or respiratory distress Cardiovascular Cardiovascular exam: Present normal rate and rhythm and RRR; Absent bradycardia, gallop, systolic murmur or tachycardia GI/Abdominal GI/Abdominal exam: Present soft Neurological Exam Neurological exam: Present alert and oriented X3; Absent altered or motor sensory deficit OBJ DATA Labs CBC & Chem 7: 11/09/21 05:15 11/09/21 05:15 Labs: Abnormal Lab Results 11/09/21 11/09/21 11/08/21 05:15 05:15 05:38 RBC 4.02 L Hgb 12.4 L Hct 36.9 L RDW 15.5 H [place] # (Auto) 0.94 H Potassium Creatinine 0.4 L Glucose AST TSH Urine Appearance Hazy A Urine Ketones 5 A 11/08/21 11/08/21 11/07/21 05:11 05:11 14:39 RBC 4.06 L Hgb 12.6 L Hct 37.2 L RDW 15.7 H [place] # (Auto) 0.95 H Potassium Creatinine 0.5 L Glucose AST TSH 5.52 H Urine Appearance Urine Ketones 11/07/21 11/07/21 14:39 14:39 RBC 4.10 L Hgb 12.9 L Hct 37.2 L RDW 15.5 H [place] # (Auto) 1.10 H Potassium 2.8 L* Creatinine 0.6 L Glucose 120 H AST 41 H TSH Urine Appearance Urine Ketones Meds: Medications Acetaminophen (Acetaminophen 325 Mg Tablet) 650 mg PO Q6HP PRN; Protocol PRN Reason: Per Pain Protocol/Fever > 101 Last Admin: 11/10/21 07:33 Dose: 650 mg Documented by: Albuterol Sulfate (Albuterol Sulfate 200 Puff Inhaler) 1 - 2 puff INH QIDP PRN PRN Reason: Shortness Of Breath Apixaban (Apixaban 5 Mg Tablet) 5 mg PO BID [facility] Last Admin: 11/10/21 08:08 Dose: 5 mg Documented by: Atorvastatin Calcium (Atorvastatin 10 Mg Tablet) 20 mg PO [facility] Last Admin: 11/09/21 22:15 Dose: 20 mg Documented by: Docusate Sodium (Docusate Sodium 100 Mg Capsule) 100 mg PO BID [facility] Last Admin: 11/10/21 08:08 Dose: 100 mg Documented by: Ferrous Sulfate (Ferrous Sulfate 325 Mg Tablet) 325 mg PO QDAY [facility] Last Admin: 11/10/21 08:08 Dose: 325 mg Documented by: Fluoxetine HCl (Fluoxetine Hcl 20 Mg Capsule) 20 mg PO QAM [facility] Last Admin: 11/10/21 08:08 Dose: 20 mg Documented by: Levothyroxine Sodium (Levothyroxine 88 Mcg Tablet) 88 mcg PO QAMAC [facility] Last Admin: 11/10/21 07:33 Dose: 88 mcg Documented by: Ondansetron HCl (Ondansetron 4 Mg/2 Ml Vial) 4 mg IV Q6HP PRN PRN Reason: Nausea And Vomiting Oxycodone/Acetaminophen (Oxycodone/Apap 10/325mg Tablet) 1 tab PO QIDP PRN; Protocol PRN Reason: Pain Last Admin: 11/08/21 19:23 Dose: 1 tab Documented by: Potassium Chloride (Potassium Chloride 20 Meq Tablet) 20 meq PO PRN PRN PRN Reason: Potassium between 3.2-3.5 Senna (Sennosides 1 Tablet) 2 tab PO [facility] Last Admin: 11/09/21 22:16 Dose: Not Given Documented by: Sodium Chloride (0.9 % Sodium Chloride 10 Ml Syringe) 10 ml IV Q8 [facility] Last Admin: 11/10/21 04:40 Dose: 10 ml Documented by: Trazodone HCl (Trazodone Hcl 50 Mg Tablet) 25 mg PO HSP PRN PRN Reason: Insomnia Last Admin: 11/09/21 22:15 Dose: 25 mg Documented by: A/P Narrative A/P Narrative: Mr. Bolivar is a 71-year-old male with history of hypothyroidism, depression, dementia, chronic Eliquis therapy who presents to hospital as directed by his primary care physician for failure to thrive 1. Frequent falls and failure to thrive Suspect this is a combination of his dementia, which could be worsening, as evident by his tremors. He is almost cachectic and physically weak. Demonstrates risky behaviors such as forgetting to turn off the stove. Should not be discharged back to be alone by himself. We will attempt to obtain senior living placement. Ordered CT of the head without contrast. Ordered urinalysis with urine cultures. Ordered TSH and vitamin B12 level. Physical therapy evaluation ordered. Ultimately will need senior living placem ent. 2.Hypokalemia, most likely from poor oral intake at home . repletion as ordered. 3. Hypothyroidism, TSH ordered. Resume levothyroxine 4. Hypertension-resume nifedipine 5. Emphysema- needs 1-2 LPM O2 via NC continuous from now onwards. PRN Inhalers for wheezing. At this time much of the history is not available since it is his first visit to our hospital. We will attempt to secure records from his PCP after this weekend. Meanwhile continue his home medications of Eliquis 1 tablets twice daily, atorvastatin, fluoxetine, levothyroxine DVT prophylaxis on Eliquis which is resumed. I had a goals of care discussion with patient. He appears competent and has insight into his medical history. He knows enough to understand that he is at risk to himself and should not live alone. He is alert and oriented to himself and place. Explained about chest compressions, shock and ventilator. Patient reports if his heart were to stop or if he has significant shortness of breath, he should be allowed to pass away peacefully. He declines CPR, shocks and ventilator. CODE STATUS- DO NOT RESUSCITATE. Plan of Treatment: Mr. Bolivar is a 71-year-old male with history of hypothyroidism, depression, dementia, chronic Eliquis therapy who presents to hospital as directed by his primary care physician for failure to thrive 1. Frequent falls and failure to thrive Suspect this is a combination of his dementia, which could be worsening, as evident by his tremors. He is almost cachectic and physically weak. Demonstrates risky behaviors such as forgetting to turn off the stove. Should not be discharged back to be alone by himself. We will attempt to obtain senior living placement. Ordered CT of the head without contrast-ruled out acute infarct or bleed. Shows mild hydrocephalus. Clinically he does not have wet, wobbly or WACKY symptoms. Normal urinalysis. TSH normal. Normal vitamin B12 level. Physical therapy evaluation ordered. Ultimately will need senior living placement. 2.Hypokalemia, most likely from poor oral intake at home . Repleted. 3. Hypothyroidism, TSH within normal limits. Resume levothyroxine 4. Hypertension-his blood pressure dropped significantly after his home nifedipine 30 mg was given this morning. Stopped nifedipine. 1 L normal saline bolus. Ordered lactate. Will monitor his blood pressure for a few days with no medications. 5. " Stenotic cerebral artery"-fwuvpe-sd-fcu who is MPOA also confirms this. He has been started on Eliquis in the past for this. Resumed. Meanwhile continue his home medications atorvastatin, fluoxetine, DVT prophylaxis on Eliquis which is resumed. CODE STATUS- DO NOT RESUSCITATE. Time Spent With Patient Time: Total time spent is greater than 50% in coordination of care (as documented) at patient's floor/unit and/or counseling patient: Total time spent with greater than 50% in coordination of care (as documented) at patient's floor/unit and/or counseling patient:: 25 - 35 minutes QUALITY VTE Deep Vein Thrombosis/Pulmonary Embolism Present on Admission: No
[2021-11-10] MEDS: SENNOSIDES 1 TABLET PO SCH (20:55)
[2021-11-10] MEDS: traZODone HCL 50 MG TABLET PO PRN (20:55)
[2021-11-10] MEDS: ATORVASTATIN 10 MG TABLET PO SCH (20:56)
[2021-11-11] MEDS: LEVOTHYROXINE 88 MCG TABLET PO SCH (06:40)
[2021-11-11] MEDS: 0.9 % SODIUM CHLORIDE 10 ML SYRINGE IV SCH ×3 (06:40→21:13)
--- NOTE | 2021-11-11 09:02 | Internal Med Progress Note ---
SUBJECTIVE Subjective Patient information: Note initiated : 11/11/21 at 8:56 am Service Date, if different from initiated Date: [] Patient: Laci Rojas 71 y/o M admitted on 11/07/21 for unable to care for himself. Chief Complaint: [] Principal diagnosis: Failure to thrive. Frequent falls Interval history: Mr. 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 Unfortunately much of the history is not available in the system, since this is patient's first visit to our hospital. Due to his dementia he is not able to offer very much history. We will make efforts to obtain his medical records from his PCPs office. I asked him about the reason for visiting emergency room. He said he just cannot take care of himself. He has significant tremors, which was evident on my examination. He says he knocks things over and has difficulty taking care of himself at his apartment. He lives alone, with no family. He says he barely manages to cook and feed himself. He endorses some concerning behavior "I sometimes leave the stove on, because I forget to turn it off"" my mind does not work, I cannot remember things anymore" 11/08-potassium has been repleted. His abxzij-si-bky who is the medical power of staff attorney is at bedside. We discussed overall goals of care for him. She agrees that he needs fdc placement. She confirmed that he has advanced directive-DO NOT RESUSCITATE. His blood pressure has been soft this morning after he received nifedipine. Around 7 in the morning it was 180 systolic, now it is 70 systolic. Denies any dizziness or lightheadedness. Ordered 1 L normal saline bolus. Canceled nifedipine. Would like to monitor his blood pressure off of medication for a few days. 11/09- CT of the head is fairly unremarkable. Blood pressure is better. Continue to hold off blood pressure medications.He is sleeping and prefers to remain asleep 11/10- Met with his sister in law who is his MPA yesterday. No new sx today. Comfortable 11/11- Wheezing bilaterally this morning. Has emphysema that is noted on CXR. Started LABA (Salmeterol) Twice daily. Constitutional Vitals: Vital Signs Temp Pulse Resp BP Pulse Ox 97.1 F 59 L 22 144/79 95 11/11/21 07:00 11/11/21 07:00 11/11/21 07:00 11/11/21 07:00 11/11/21 07:00 Period Temp Pulse Resp BP Sys/Harper Pulse Ox Last 24 Hr 97.1 F-98.8 F 55-72 16-24 99-144/64-79 94-98 Intake and Output 11/10/21 11/11/21 11/11/21 21:59 05:59 13:59 Intake Total 220 225 Output Total 200 200 Balance 20 25 Weight 56.472 kg Intake & Output: Intake & Output 11/10/21 11/11/21 11/11/21 21:59 05:59 13:59 Intake Total 220 225 Output Total 200 200 Balance 20 25 Weight 56.472 kg Intake: Oral 220 225 Output: Void Amount 200 200 Other: Meal Lunch Percent of Meal Consumed 100% Urine Appearance Clear Clear Urine Color Bright Yellow Bright Yellow Stool Size Moderate Large Stool Color Brown Brown Green Stool Consistency Dry and Hard Normal for Patient Formed # Voids 1 General appearance: average body habitus, cooperative and no acute distress Exam: Underweight, almost cachectic Head Head exam: Present atraumatic and normocephalic Eye Eye exam: Present normal appearance Respiratory Respiratory exam: Present prolonged expiratory phase and wheezes Cardiovascular Cardiovascular exam: Present normal rate and rhythm and RRR; Absent bradycardia, gallop, systolic murmur or tachycardia GI/Abdominal GI/Abdominal exam: Present soft Neurological Exam Neurological exam: Present alert and oriented X3; Absent altered or motor sensory deficit OBJ DATA Labs CBC & Chem 7: 11/09/21 05:15 11/09/21 05:15 Labs: Abnormal Lab Results 11/09/21 11/09/21 05:15 05:15 RBC 4.02 L Hgb 12.4 L Hct 36.9 L RDW 15.5 H [place] # (Auto) 0.94 H Creatinine 0.4 L Meds: Medications Acetaminophen (Acetaminophen 325 Mg Tablet) 650 mg PO Q6HP PRN; Protocol PRN Reason: Per Pain Protocol/Fever > 101 Last Admin: 11/10/21 07:33 Dose: 650 mg Documented by: Albuterol Sulfate (Albuterol Sulfate 200 Puff Inhaler) 1 - 2 puff INH QIDP PRN PRN Reason: Shortness Of Breath Apixaban (Apixaban 5 Mg Tablet) 5 mg PO BID [facility] Last Admin: 11/10/21 20:56 Dose: 5 mg Documented by: Atorvastatin Calcium (Atorvastatin 10 Mg Tablet) 20 mg PO HS [facility] Last Admin: 11/10/21 20:56 Dose: 20 mg Documented by: Docusate Sodium (Docusate Sodium 100 Mg Capsule) 100 mg PO BID [facility] Last Admin: 11/10/21 20:55 Dose: 100 mg Documented by: Ferrous Sulfate (Ferrous Sulfate 325 Mg Tablet) 325 mg PO QDAY [facility] Last Admin: 11/10/21 08:08 Dose: 325 mg Documented by: Fluoxetine HCl (Fluoxetine Hcl 20 Mg Capsule) 20 mg PO QAM [facility] Last Admin: 11/10/21 08:08 Dose: 20 mg Documented by: Levothyroxine Sodium (Levothyroxine 88 Mcg Tablet) 88 mcg PO QAMAC [facility] Last Admin: 11/11/21 06:40 Dose: 88 mcg Documented by: Ondansetron HCl (Ondansetron 4 Mg/2 Ml Vial) 4 mg IV Q6HP PRN PRN Reason: Nausea And Vomiting Oxycodone/Acetaminophen (Oxycodone/Apap 10/325mg Tablet) 1 tab PO QIDP PRN; Protocol PRN Reason: Pain Last Admin: 11/08/21 19:23 Dose: 1 tab Documented by: Potassium Chloride (Potassium Chloride 20 Meq Tablet) 20 meq PO PRN PRN PRN Reason: Potassium between 3.2-3.5 Senna (Sennosides 1 Tablet) 2 tab PO [facility] Last Admin: 11/10/21 20:55 Dose: 2 tab Documented by: Sodium Chloride (0.9 % Sodium Chloride 10 Ml Syringe) 10 ml IV Q8 [facility] Last Admin: 11/11/21 06:40 Dose: 10 ml Documented by: Trazodone HCl (Trazodone Hcl 50 Mg Tablet) 25 mg PO HSP PRN PRN Reason: Insomnia Last Admin: 11/10/21 20:55 Dose: 25 mg Documented by: A/P Narrative A/P Narrative: Mr. Bolivar is a 71-year-old male with history of hypothyroidism, depression, dementia, chronic Eliquis therapy who presents to hospital as directed by his primary care physician for failure to thrive 1. Frequent falls and failure to thrive Suspect this is a combination of his dementia, which could be worsening, as e vident by his tremors. He is almost cachectic and physically weak. Demonstrates risky behaviors such as forgetting to turn off the stove. Should not be discharged back to be alone by himself. We will attempt to obtain fdc placement. 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 It mentions mild hydrocephalus, but I believe it could be from promin ent atrophy, causing his dementia. Clinically he does not have wet, wobbly or WACKY symptoms. Normal urinalysis. TSH normal. Normal vitamin B12 level. Normal urinalysis, TSH and vitamin B12 levels. Physical therapy evaluation ordered. Ultimately will need fdc placement. 2.Hypokalemia, most likely from poor oral intake at home . Repleted. 3. Hypothyroidism, TSH ordered. Resume levothyroxine 4. Hypertension- his blood pressure dropped significantly after his home nifedipine 30 mg was given this morning. Stopped nifedipine. 1 L normal saline bolus. Lactate normal. Monitoredhis blood pressure for a few days with no medications. Stop nifedipine permanently. 5. Emphysema- needs 1-2 LPM O2 via NC continuous from now onwards. Start Salmeterol (LABA) inhaler twice daily scheduled. He is in group B, with moderate to severe symptoms. As needed albuterol as needed 6. " Stenotic cerebral artery"-hrxidy-gu-amp who is MPOA also confirms this. He has been started on Eliquis in the past for this. Resumed. continue his home medications of Eliquis 1 tablets twice daily, atorvastatin, fluoxetine, levothyroxine DVT prophylaxis on Eliquis which is resumed. I had a goals of care discussion with patient. He appears competent and has insight into his medical history. He knows enough to understand that he is at risk to himself and should not live alone. He is alert and oriented to himself and place. Explained about chest compressions, shock and ventilator. Patient reports if his heart were to stop or if he has significant shortness of breath, he should be allowed to pass away peacefully. He declines CPR, shocks and ventilator. CODE STATUS- DO NOT RESUSCITATE. Time Spent With Patient Time: Total time spent is greater than 50% in coordination of care (as documented) at patient's floor/unit and/or counseling patient: Total time spent with greater than 50% in coordination of care (as documented) at patient's floor/unit and/or counseling patient:: 25 - 35 minutes QUALITY VTE Deep Vein Thrombosis/Pulmonary Embolism Present on Admission: No
[2021-11-11] MEDS: FERROUS SULFATE 325 MG TABLET PO SCH (09:18)
[2021-11-11] MEDS: APIXABAN 5 MG TABLET PO SCH ×2 (09:18→21:11)
[2021-11-11] MEDS: FLUoxetine HCL 20 MG CAPSULE PO SCH (09:18)
[2021-11-11] MEDS: DOCUSATE SODIUM 100 MG CAPSULE PO SCH ×2 (09:18→21:11)
[2021-11-11] MEDS: SALMETEROL XINAFOATE 1 PUFF INHALER INH SCH ×2 (12:09→21:13)
[2021-11-11] MEDS: ACETAMINOPHEN 325 MG TABLET PO PRN (15:30)
[2021-11-11] MEDS: traZODone HCL 50 MG TABLET PO PRN (21:10)
[2021-11-11] MEDS: ATORVASTATIN 10 MG TABLET PO SCH (21:10)
[2021-11-11] MEDS: SENNOSIDES 1 TABLET PO SCH (21:13)
[2021-11-12] MEDS: LEVOTHYROXINE 88 MCG TABLET PO SCH (07:24)
[2021-11-12] MEDS: FERROUS SULFATE 325 MG TABLET PO SCH (08:18)
[2021-11-12] MEDS: DOCUSATE SODIUM 100 MG CAPSULE PO SCH (08:18)
[2021-11-12] MEDS: APIXABAN 5 MG TABLET PO SCH (08:18)
[2021-11-12] MEDS: FLUoxetine HCL 20 MG CAPSULE PO SCH (08:18)
[2021-11-12] MEDS: 0.9 % SODIUM CHLORIDE 10 ML SYRINGE IV SCH (08:19)
[2021-11-12] MEDS ORDERED: FLUTICASONE/SALMETEROL 50/100 INHALER #14 INH SCH (09:00)
[2021-11-12] MEDS: IPRATROPIUM/ALBUTEROL 3 ML AMPUL.NEB NEB SCH ×2 (09:47→09:53)
--- NOTE | 2021-11-12 10:31 | General Surgery Consult Note ---
HPI Data of Consult Patient: new to practice Consult date: 11/12/21 Requesting physician: Matti Segovia Primary Care Provider: Samm Bhakta Consult Narrative Patient Information: Note initiated : 11/12/21 at 10:22 am Service Date, if different from initiated Date: [] Patient: Laci Rjoas 71 y/o M admitted on 11/07/21 for unable to care for himself. Chief Complaint: [Right Knee Cyst] Laci is seen in consultation just ahead of planned discharge this am after hospitalization for an unrelated matter. He has had a recurring area of infect ion and bother in the dermis of the medial Right Knee that has frequently enlarged, become red and tender, drained and then normalized only to recur again some time later. He has not had prior surgery or removal. cc:: CC: Matti Segovia MD Review of Systems All systems: reviewed and no additional remarkable complaints except as stated PFSH PFSH All Active Problems Acute hypokalemia (Acute) Weakness (Acute) Social History (Updated 11/07/21 @ 17:34 by Matti Segovia MD) household members: alone and other housing: apartment lives independently: Yes marital status: single MEDS/ALLERGIES Home Medications and Allergies Home Medications Medication Instructions Recorded Confirmed Type albuterol sulfate 90 mcg/actuation 1 - 2 puff PO QID 11/07/21 11/07/21 History aerosol inhaler (Ventolin HFA) apixaban 5 mg tablet (Eliquis) 1 tab PO BID 11/07/21 11/07/21 History atorvastatin 10 mg tablet 2 tab PO HS 11/07/21 11/07/21 History ferrous sulfate 325 mg (65 mg 1 tab PO QDAY 11/07/21 11/07/21 History iron) tablet (FeroSul) fluoxetine 20 mg capsule 1 cap PO QAM 11/07/21 11/07/21 History levothyroxine 88 mcg tablet 1 tab PO QDAY 11/07/21 11/07/21 History nifedipine 60 mg tablet,extended 1 tab PO QDAY 11/07/21 11/07/21 History release oxycodone-acetaminophen 10 mg-325 1 tab PO QIDP PRN 11/07/21 11/07/21 History mg tablet potassium chloride 10 mEq 1 cap PO QDAY 11/07/21 11/07/21 History capsule,extended release Allergies Allergy/AdvReac Type Severity Reaction Status Date / Time No Known Drug Allergies Allergy Unverified 11/07/21 14:28 Physical Examination Vital Signs Vital signs: Temp Pulse Resp BP Pulse Ox 97.3 F 63 20 122/75 94 11/12/21 08:00 11/12/21 08:00 11/12/21 08:00 11/12/21 08:00 11/12/21 09:51 Integumentary Integumentary: Present other (Directed Exam to the area of the Right Medial Knee reveals a 1-2 cm raised red irritated looking skin lesion consistent with a proable infected dermal cyst. There is no fluctance or surrounding cellulitis) Results Labs Result diagrams: 11/09/21 05:15 11/09/21 05:15 Labs: All other labs normal. A/P Narrative A/P Narrative: Infected Dermal Cyst Right Medial Knee The area looks to be resolving of its own accord to some degree but I would recommend he go out on an oral AB in hopes of helping the area to normalize quickly with formal removal either in the office or the OR My contact info is provided and we will plan to see him in Outpatient Follow Up soon to follow and re evaluate the area Time Spent With Patient Time: Total time spent is greater than 50% in coordination of care (as documented) at patient's floor/unit and/or counseling patient:
[2021-11-12] MEDS: ACETAMINOPHEN 325 MG TABLET PO PRN (10:37)
--- NOTE | 2021-11-12 10:41 | Discharge Summary ---
Discharge Provider Provider Patient information: Note initiated : 11/12/21 at 10:26 am Service Date, if different from initiated Date: [] Patient: Laci Rojas 71 y/o M admitted on 11/07/21 for unable to care for himself. Chief Complaint: [] Date of admission: 11/07/21 18:50 Discharge date: 11/12/21 Primary care physician: Samm Bhakta Admitting clinician: Matti Segovia Attending physician on admission: Matti Segovia Consults: 11/07/21 Consult to Physician [CONS] Stat Comment: Consulting Provider: Matti Segovia Reason For Exam: Physician to Consult 11/09/21 10:39 Consult to Physician [CONS] Routine Comment: Consulting Provider: [facility] Reason For Exam: Physician to Consult Attending physician on discharge: Matti Segovia Discharging clinician: Matti Segovia Discharge Meds Discharge Medications Home Medications albuterol sulfate 90 mcg/actuation aerosol inhaler (Ventolin HFA) 1 - 2 puff PO QID 11/07/21 [History Confirmed 11/07/21 Last Taken Unknown] apixaban 5 mg tablet (Eliquis) 1 tab PO BID 11/07/21 [History Confirmed 11/07/21 Last Taken Unknown] atorvastatin 10 mg tablet 2 tab PO HS 11/07/21 [History Confirmed 11/07/21 Last Taken Unknown] ferrous sulfate 325 mg (65 mg iron) tablet (FeroSul) 1 tab PO QDAY 11/07/21 [History Confirmed 11/07/21 Last Taken Unknown] fluoxetine 20 mg capsule 1 cap PO QAM 11/07/21 [History Confirmed 11/07/21 Last Taken Unknown] levothyroxine 88 mcg tablet 1 tab PO QDAY 11/07/21 [History Confirmed 11/07/21 Last Taken Unknown] potassium chloride 10 mEq capsule,extended release 1 cap PO QDAY 11/07/21 [History Confirmed 11/07/21 Last Taken Unknown] cephalexin 250 mg capsule 250 mg PO BID #14 cap 11/12/21 [Rx Last Taken Unknown] fluticasone 100 mcg-salmeterol 50 mcg/dose blistr powdr for inhalation (Advair Diskus) 1 puff INH BID 30 Days #1 ea 11/12/21 [Rx Last Taken Unknown] ipratropium 0.5 mg-albuterol 3 mg (2.5 mg base)/3 mL nebulization soln 3 ml NEB Q4HRT 5 Days #60 ml 11/12/21 [Rx Last Taken Unknown] COURSE Hospital Course Hospital course: Mr. 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 Unfortunately much of the history is not available in the system, since this is patient's first visit to our hospital. Due to his dementia he is not able to offer very much history. We will make efforts to obtain his medical records from his PCPs office. I asked him about the reason for visiting emergency room. He said he just cannot take care of himself. He has significant tremors, which was evident on my examination. He says he knocks things over and has difficulty taking care of himself at his apartment. He lives alone, with no family. He says he barely manages to cook and feed himself. He endorses some concerning behavior "I sometimes leave the stove on, because I forget to turn it off"" my mind does not work, I cannot remember things anymore" 11/08-potassium has been repleted. His jogxan-qm-dhp who is the medical power of mergers and acquisitions attorney is at bedside. We discussed overall goals of care for him. She agrees that he needs senior care placement. She confirmed that he has advanced directive-DO NOT RESUSCITATE. His blood pressure has been soft this morning after he received nifedipine. Around 7 in the morning it was 180 systolic, now it is 70 systolic. Denies any dizziness or lightheadedness. Ordered 1 L normal saline bolus. Canceled nifedipine. Would like to monitor his blood pressure off of medication for a few days. 11/09- CT of the head is fairly unremarkable. Blood pressure is better. Continue to hold off blood pressure medications.He is sleeping and prefers to remain asleep 11/10- Met with his sister in law who is his MPA yesterday. No new sx today. Comfortable 11/11- Wheezing bilaterally this morning. Has emphysema that is noted on CXR. Started LABA (Salmeterol) Twice daily. 11/02-salmeterol is expensive and is not covered by his insurance. Started Advair instead. Ordered scheduled nebs. Wheezing persists. No new symptoms per patient. Patient feels he is at his baseline. Will discharge to facility today. Discharge diagnosis: Failure to thrive Secondary discharge diagnosis: Dementia Emphysema Hypothyroidism Hypertension Cerebral artery stenosis Pertinent studies/significant findings: Mr. Bolivar is a 71-year-old male with history of hypothyroidism, depression, dementia, chronic Eliquis therapy who presents to hospital as directed by his primary care physician for failure to thrive 1. Frequent falls and failure to thrive Suspect this is a combination of his dementia, which could be worsening, as evident by his tremors. He is almost cachectic and physically weak. Demonstrates risky behaviors such as forgetting to turn off the stove. Should not be discharged back to be alone by himself. Discharge to senior care. 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 It mentions mild hydrocephalus, but I believe it could be from prominent atrophy, causing his dementia. Clinically he does not have wet, wobbly or WACKY symptoms. Normal urinalysis. TSH normal. Normal vitamin B12 level. Normal urinalysis, TSH and vitamin B12 levels. 2.Hypokalemia, most likely from poor oral intake at home . Repleted. 3. Hypothyroidism, TSH ordered. Resume levothyroxine 4. Hypertension- his blood pressure dropped significantly after his home nifedipine 30 mg was given this morning. Stopped nifedipine. 1 L normal saline bolus. Lactate normal. Monitoredhis blood pressure for a few days with no medications. Stop nifedipine permanently. 5. Emphysema- needs 1-2 LPM O2 via NC continuous from now onwards. Start Advair inhaler twice daily scheduled. He is in group B, with moderate to severe symptoms. As needed albuterol inhaler can be continued as outpatient 6. " Stenotic cerebral artery"-lbsdox-bj-rbm who is MPOA also confirms this. He has been started on Eliquis in the past for this. Resumed. 7. Right medial above knee sebaceous cyst. Drains on pressure. Discussed with Dr. Dimas. Started on cephalexin to 50 mg twice a day for a week. He will see Dr. Dimas in his clinic for follow-up of the cyst. continue his home medications of atorvastatin & fluoxetine, Time Spent with Patient Time attestation: Total time spent providing and/or coordinating discharge services: Time spent: Greater than 30 minutes EXAM Constitutional Vitals: Temp Pulse Resp BP Pulse Ox 97.3 F 63 20 122/75 94 11/12/21 08:00 11/12/21 08:00 11/12/21 08:00 11/12/21 08:00 11/12/21 09:51 General appearance: average body habitus, cooperative and no acute distress Head Head exam: Present atraumatic and normocephalic Eye Eye exam: Present normal appearance ENT ENT exam: Present mucous membranes moist Respiratory Respiratory exam: Present normal respiratory exam, CTAB, prolonged expiratory phase and wheezes; Absent accessory muscle use, rales, respiratory distress or stridor Expanded Respiratory Exam Location: wheezes: Left and Right Cardiovascular Cardiovascular exam: Present normal rate and rhythm and RRR; Absent bradycardia, diastolic murmur, gallop, irregular rhythm or rubs GI/Abdominal GI/Abdominal exam: Present normal bowel sounds and soft; Absent distended, guarding or rebound Expanded Lower Extremity Exam Hip exam: Present normal inspection; Absent swelling Back Exam Back exam: Present normal inspection; Absent CVA tenderness (L), CVA tenderness (R), paraspinal tenderness or vertebral tenderness Neurological Exam Neurological exam: Present alert and oriented X3; Absent abnormal gait or motor sensory deficit Discharge Plan Patient/Caregiver Discharge Instructions Activity: as per physical therapy Diet: Regular Diet Activity Restrictions/Additional Instructions: Protect sacral region with bordered foam. Patient had Stage II pressure injury to sacral region on admission which is currently closed. Prescriptions: New ipratropium-albuterol 0.5 mg-3 mg(2.5 mg base)/3 mL Solution For Nebulization 3 ml NEB Q4HRT 5 Days Qty: 60 1RF fluticasone propion-salmeterol [Advair Diskus] 100-50 mcg/dose Blister With Device 1 puff INH BID 30 Days Qty: 1 2RF cephalexin 250 mg capsule 250 mg PO BID Qty: 14 0RF Continued potassium chloride 10 mEq capsule, extended release 1 cap PO QDAY 0RF atorvastatin 10 mg tablet 2 tab PO HS 0RF levothyroxine 88 mcg tablet 1 tab PO QDAY 0RF ferrous sulfate [FeroSul] 325 mg (65 mg iron) tablet 1 tab PO QDAY 0RF albuterol sulfate [Ventolin HFA] 90 mcg/actuation HFA aerosol inhaler 1 - 2 puff PO QID 0RF fluoxetine 20 mg capsule 1 cap PO QAM 0RF Eliquis 5 mg tablet 1 tab PO BID 0RF Discontinued oxycodone-acetaminophen 10-325 mg tablet 1 tab PO QIDP PRN (Reason: Pain) 0RF nifedipine 60 mg tablet extended release 1 tab PO QDAY 0RF Other Ambulatory Orders: Wound Care Instructions (CONT) Location: None Selected Ordered By: Matti Segovia OT Discharge Order (Routine) Location: None Selected Ordered By: Matti Segovia Physical Therapy at Discharge - General (Routine) Location: None Selected Ordered By: Matti Segovia Follow Up Plan Follow up with: Samm Bhakta MD [Primary Care Provider] - (Please call and schedule a hospital follow up to be seen in 7-10 days.) Luis E Dimas MD [Physician] - (Please call and schedule an appointment for the lesion on right medial leg to be seen in one week.) Patient Disposition: Xfer SNF Overall status at discharge: patient is back to baseline Discharge Orders: Discharge Order (Routine); Ordered 11/12/21 Ordered By: Matti Segovia QUALITY VTE Deep Vein Thrombosis/Pulmonary Embolism Present on Admission: No
== END 2021-11-12 11:40 | DRG 884 ==
LOC: MEDSUR 14:23 → ED 14:23 → OBSVTOIN 18:50 → MEDSUR 18:53
PROVIDERS: ADMIT Internal Medicine Medical Oncology; ATTEND Internal Medicine Medical Oncology